=== PATIENT | female | born 2000 | race Hispanic/Latino ===

== ENCOUNTER 2019-12-09 19:40 | Emergency (ER) | payer OTHER, SELFPAY ==
--- OUTSIDE RECORDS SUMMARY | 2019-12-09 19:43 | XMS REPORT | Summary of Care ---
:[address] 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 Brand Hypothyroidism, name necessary. unspecified type terconazole 0.8 % Insert 1 20 g 0 05/16/2019 Discontinued vaginal Applicator into 9 creamIndications: vagina at Vaginal yeast bedtime. infection documented as of this encounter (statuses as of 08/01/2019) Active Problems Problem Noted Date Other specified hypothyroidism 11/06/2018 Morbid obesity with body mass index of 40.0-49.9 10/23/2018 Migraine without aura and without status migrainosus, not intractable 2017 Obesity (BMI 30-39.9) 03/17/2018 Family history of thyroid cancer 05/20/2017 Acquired hypothyroidism 05/17/2017 documented as of this encounter (statuses as of 08/01/2019) Resolved Problems Problem Noted Date Resolved Date (spontaneous vaginal delivery) 11/08/2018 11/30/2018 37 weeks gestation of 11/06/2018 02/28/2019 Positive GBS test 11/06/2018 02/28/2019 Decreased movements in third trimester 11/06/2018 02/28/2019 Excessive growth affecting management of in 11/06/20182018 third trimester 34 weeks gestation of 10/09/2018 02/28/2019 Supervision of normal 08/14/2018 02/28/2019 29 weeks gestation of 08/09/2018 02/28/2019 documented as of this encounter (statuses as of 08/01/2019) Immunizations Name Administration Dates Next Due HPV 04/05/2013, 11/09/2012, 01/21/2012 Influenza Virus Vaccine Quad .5 mL IM 6+ 09/11/2018 MO Influenza Virus Vaccine Quad IM 3+ YRS 11/07/2014 Tdap 09/11/2018 documented as of this encounter Social History Tobacco Use Types Packs/Day Years Used Date Never Smoker Smokeless Tobacco: Never Used Alcohol Use Drinks/Week oz/Week Comments No Sex Assigned at Date Recorded Not on file Job Start Date Occupation Industry Not on file Not on file Not on file Travel History Travel Start Travel End No recent travel history available. 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 This is a recurrent problem. The current episode started in the past 7 days (2 days) . The problem occurs 2 to 4 times per day.The patient is experiencing no pain. She wears cotton underwear. The vaginal discharge was clear, white and malodorous. The vaginal bleeding is none. Nothing aggravates the symptoms. She has tried nothing for the symptoms. No, her partner does not have an STD. She uses an IUD for contraception. Her past medical history is significant for vaginosis. Patient reports sexually active. Histories OB History Para Term AB Living 2 2 2 0 0 2 SAB TAB Ectopic Multiple Live Births 0 0 0 0 2 # Outcome Date GA Lbr Rob/2nd Weight Sex Delivery Anes PTL Lv 2 Term 11/07/18 38w0d 8 lb 15.6 oz (4.07 kg) F NORMAL SPONT EPI GURPREET Complications: Shoulder Dystocia 1 Term 02/11/16 39w0d 7 lb 10 oz (3.459 kg) M NORMAL SPONT None N GURPREET Obstetric Comments Blood transfusion 1 week after delivery due to anemia Past Medical History: Diagnosis Date Anemia 2017 with previous , hasnt had labs since. Hypothyroid 2010 currently taking medications Migraine Transfusion history 2016 1 week after she had son Family History Problem Relation Age of Onset Thyroid Cancer Mother Hypertension Mother Diabetes Maternal Grandmother Hypertension Maternal Grandmother Thyroid Cancer Maternal Grandmother brain tumor No Significant Medical Problems Father Depression Sister No Significant Medical Problems Maternal Aunt No Significant Medical Problems Maternal Uncle No Significant Medical Problems Paternal Aunt No Significant Medical Problems Paternal Uncle Gout Maternal Grandfather Arthritis NoFHx Asthma NoFHx defects NoFHx Breast Cancer NoFHx Colon Cancer NoFHx Uterine Cancer NoFHx Ovarian Cancer NoFHx Cancer NoFHx Genetic NoFHx Heart NoFHx High cholesterol NoFHx Mental retardation NoFHx Neurological NoFHx Osteoporosis NoFHx Psychiatry NoFHx Family Status Relation Name Status Mo Alive MGMo Alive Fa Alive Sis Alive MAunt Alive MUnc Alive PAunt Alive PUnc Alive MGFa Alive PGMo PGFa Alive NoFHx (Not Specified) Past Surgical History: Procedure Laterality Date TOOTH EXTRACTION 2013 Social History Socioeconomic History Marital status: Single Spouse name: Not on file Number of children: Not on file Years of education: Not on file Highest education level: Not on file Occupational History Not on file Social Needs Financial resource strain: Not on file Food insecurity: Worry: Not on file Inability: Not on file Transportation needs: Medical: Not on file Non-medical: Not on file Tobacco Use Smoking status: Never Smoker Smokeless tobacco: Never Used Substance and Sexual Activity Alcohol use: No Drug use: No Sexual activity: Yes Partners: Male control/protection: IUD Comment: last sexual intercourse 02/25/2019 Lifestyle Physical activity: Days per week: Not on file Minutes per session: Not on file Stress: Not on file Relationships Social connections: Talks on phone: Not on file Gets together: Not on file Attends holiness service: Not on file Active member of club or organization: Not on file Attends meetings of clubs or organizations: Not on file Relationship status: Not on file Intimate partner violence: Fear of current or ex partner: Not on file Emotionally abused: Not on file Physically abused: Not on file Forced sexual activity: Not on file Other Topics Concern Not on file Social History Narrative Shinto preference is Uatsdin. Pt lives with boyfriend and 2 kids. Social History Substance and Sexual Activity Sexual Activity Yes Partners: Male control/protection: IUD Comment: last sexual intercourse 02/25/2019 Labs Labs are pending. Radiology No new radiology. Allergies Hayley has No Known Allergies. Medications Hayley has a current medication list which includes the following prescription(s) : levothyroxine. Review of Systems Constitutional: Negative. Gastrointestinal: Negative. Genitourinary: Positive for vaginal discharge. Neurological: Negative. Psychiatric/Behavioral: Negative. BP 105/72 (BP Location: Right arm, Patient Position: Sitting, BP CUFF SIZE: Adult Medium) | Pulse 64 | Temp 36.6 C (97.9 F) (Oral) | Resp 16 | Ht 5 ' 2" (1.575 m) | Wt 207 lb 3 oz (94 kg) | LMP 04/04/2019 (Approximate) | BMI 37.90 kg/m Pregravid BMI: Could not be calculated Physical Exam Vitals reviewed. Constitutional: She is oriented to person, place, and time. She appears well- developed and well-nourished. Her body habitus is obese. Pulmonary/Chest: Normal inspiratory effort. Neuro/Psychiatric: She has a normal mood and affect. She is oriented to person, place, and time. Skin: Skin normal. External genitalia: Normal external genitalia appropriate for age. Vagina:Normal vagina. No abnormal vaginal discharge found. Cervix: Normal cervix. No discharge present. Is Wet Prep Result Normal or Abnormal?: Normal Assessment/Plan 1. Vaginal discharge Exam and wet prep WNL today. Patient reports this is a frequent complaint Do not see an affirm has been tested for confirmation, will send today - [facility] ONLY - VAGINAL PATHOGENS BY [facility] Discussed treatment options. Reviewed patient instructions and provided printed copy. This visit did not involve counseling and coordination that comprised more than 50% of the visit time. documented in this encounter Plan of Treatment Date Type Specialty Care Team Description 03/03/2020 Office Visit [facility] Satellites Leni Barraza FNP [address], [place] [address] Name Type Priority Associated Diagnoses Order Schedule [facility] ONLY - VAGINAL PATHOGENS LAB Routine Vaginal discharge Ordered: 2018 BY DNA PROBE Health Maintenance Due Date Last Done Comments MENINGOCOCCAL B VACCINES (1 of 2008 2 - Risk Bexsero 2-dose series) INFLUENZA VACCINE (#1) 2019 09/11/2018, 11/07/2014 PAP SMEAR 2019 CHLAMYDIA SCREENING 05/17/2020 05/17/2019, 02/28/2019, 03/17/2018 DTaP,Tdap,and Td Vaccines (2 - 09/11/2028 09/11/2018 Td) HPV VACCINES Completed 04/05/2013, 11/09/2012, 01/21/2012 MENINGOCOCCAL VACCINE Aged Out No longer eligible based on patient's age to complete this topic PNEUMOCOCCAL 0-64 YEARS Aged Out No longer eligible based COMBINED SERIES on patient's age to complete this topic documented as of this encounter Results Not on filedocumented in this encounter Visit Diagnoses Diagnosis Vaginal discharge - Primary Leukorrhea, not specified as infective documented in this encounter Insurance Payer Benefit Plan Subscriber ID Effective Phone Address Type / Group [facility] xxxxxxxxx 2019-Prese [phone] Medicaid WOMEN nt [address] [place] [address] (Home) [address] [place] [address] documented as of this encounter Advance Directives Name Relationship Healthcare Agent Communication Relationship Jessica Rodriguez Mother Primary healthcare agent
--- OUTSIDE RECORDS SUMMARY | 2019-12-09 19:43 | XMS REPORT ---
:2000 Author Organization [facility] Address [address] [place] [address] Care Team Providers Name Role Phone MARTINA BRUSH Unavailable Unavailable Problems This patient has no known problems. Allergies, Adverse Reactions, Alerts This patient has no known allergies or adverse reactions. Medications This patient has no known medications. Results Test Description Test Time Test Comments Text Results Atomic Results Result Comments RPR 2017-08-15 09:38:00 Test Item Value Reference Range Comments RPR SCREEN (BEAKER) (test hntq=529) Nonreactive Nonreactive MR, BRAIN, [id number] 17:26:00FINAL REPORT MRI brain with and without contrast Comparison: None Reason for exam: Headache sudden onset, carotid vertebral dissection suspected Discussion: Multiplanar MRimaging of the brain was provided [id number] IV gadolinium administration using T1, T2, FLAIR, T2 star, diffusion weighted sequences, and ADC map imaging. There are no intracranial hematomas, masses,hydrocephalus, shift, or extra-axial collections. There are no areas of abnormal enhancement or abnormal diffusion restriction. Flow-voids are seen in the basilar and internal carotid arteries as well as in the large posterior dural sinuses. The pineal, sella, and craniocervical junction regions are unremarkable. The visualized orbital contents, paranasal sinuses, skullbase and surrounding soft tissues are unremarkable. Impressions: Negative cranial MRI. Signed: Sheree Prince Verified Date/Time: 08/14/2017 17:26:10 Reading Location : [facility] [id number] Neuro Reading Room [id number] 11:00:00 Test Item Value Reference Range Comments THYROID STIMULATING HORMONE (BEAKER) (test 2.80 uIU/mL 0.35-4.94 asao=054) VITAMIN B12 AND [id number] 11:00:00 Test Item Value Reference Range Comments VITAMIN B12 (BEAKER) (test pgqd=715) 371 pg/mL 213-816 FOLATE (BEAKER) (test afyq=880) 14.1 ng/mL >=7.0 HEMOGLOBIN [id number] 08:05:00 Test Item Value Reference Range Comments HEMOGLOBIN A1C (BEAKER) (test ydqh=015) 5.3 % 4.3-6.1 SEDIMENTATION [id number] 06:19:00 Test Item Value Reference Range Comments SEDIMENTATION RATE, ERYTHROCYTE (BEAKER) (test 6 mm/HR 0-20 gvcl=587) LIPID [id number] 05:31:00 Test Item Value Reference Range Comments TRIGLYCERIDES (BEAKER) (test edky=269) 90 mg/dL CHOLESTEROL (BEAKER) (test qnvn=796) 135 mg/dL HDL CHOLESTEROL (BEAKER) (test taii=366) 27 mg/dL LDL CHOLESTEROL CALCULATED (BEAKER) (test 90 mg/dL sjqb=780) Triglyceride Reference Range: Low Risk <150 Borderline 150- 199 High Risk 200-499 Very High Risk >=500Cholesterol Reference Range: Low Risk <200 Borderline 200-239 High Risk > 240HDL Cholesterol Reference Range: Low Risk >=60 High Risk <40LDL Cholesterol Reference Range: Optimal <100 Near Optimal 100-129 Borderline 130-159 High 160-189 Very High >=190 FastingBASIC METABOLIC [id number] 05:31:00 Test Item Value Reference Range Comments SODIUM (BEAKER) (test 141 meq/L 136-145 dmbw=380) POTASSIUM (BEAKER) (test 3.5 meq/L 3.5-5.1 jfis=232) CHLORIDE (BEAKER) (test 111 meq/L 98-107 htwz=571) CO2 (BEAKER) (test 22 meq/L 22-29 omsy=894) BLOOD UREA NITROGEN 11 mg/dL 7-21 (BEAKER) (test ijgz=542) CREATININE (BEAKER) (test 0.66 mg/dL 0.57-1.25 lqqz=278) GLUCOSE RANDOM (BEAKER) 88 mg/dL 70-105 (test gjvn=320) CALCIUM (BEAKER) (test 8.7 mg/dL 8.4-10.2 enby=066) EGFR (BEAKER) (test 115 mL/min/1.73 sq m ESTIMATED GFR IS NOT mnuu=7009) ACCURATE CREATININE CLEARANCE IN PREDICTING GLOMERULAR FILTRATION RATE. ESTIMATED GFR IS NOT APPLICABLE FOR DIALYSIS PATIENTS. FastingC-REACTIVE [id number] 05:31:00 Test Item Value Reference Range Comments C-REACTIVE PROTEIN (BEAKER) (test xtsz=003) 0.67 mg/dL 0.00-0.50 FastingCBC W/PLT COUNT & AUTO [id number] 04:55:00 Test Item Value Reference Range Comments WHITE BLOOD CELL COUNT (BEAKER) (test ckcc=775) 9.4 K/ L 3.5-10.5 RED BLOOD CELL COUNT (BEAKER) (test qxez=944) 4.03 M/ L 3.93-5.22 HEMOGLOBIN (BEAKER) (test qolw=506) 11.8 GM/DL 11.2-15.7 HEMATOCRIT (BEAKER) (test msnv=210) 36.0 % 34.1-44.9 MEAN CORPUSCULAR VOLUME (BEAKER) (test xjzj=128) 89.3 fL 79.4-94.8 MEAN CORPUSCULAR HEMOGLOBIN (BEAKER) (test 29.3 pg 25.6-32.2 ncdo=550) MEAN CORPUSCULAR HEMOGLOBIN CONC (BEAKER) (test 32.8 GM/DL 32.2-35.5 zett=030) RED CELL DISTRIBUTION WIDTH (BEAKER) (test 13.4 % 11.7-14.4 exoh=985) PLATELET COUNT (BEAKER) (test fbqo=359) 295 K/CU MM 150-450 MEAN PLATELET VOLUME (BEAKER) (test vdfm=515) 11.2 fL 9.4-12.3 NUCLEATED RED BLOOD CELLS (BEAKER) (test 0 /100 WBC 0-0 zler=975) NEUTROPHILS RELATIVE PERCENT (BEAKER) (test 56 % caeb=982) LYMPHOCYTES RELATIVE PERCENT (BEAKER) (test 34 % nhiq=082) MONOCYTES RELATIVE PERCENT (BEAKER) (test 9 % eixl=996) EOSINOPHILS RELATIVE PERCENT (BEAKER) (test 1 % uaww=881) BASOPHILS RELATIVE PERCENT (BEAKER) (test 0 % kler=845) NEUTROPHILS ABSOLUTE COUNT (BEAKER) (test 5.24 K/ L 1.56-6.13 ioss=346) LYMPHOCYTES ABSOLUTE COUNT (BEAKER) (test 3.16 K/ L 1.18-3.74 nojf=919) MONOCYTES ABSOLUTE COUNT (BEAKER) (test 0.82 K/ L 0.24-0.36 cksd=809) EOSINOPHILS ABSOLUTE COUNT (BEAKER) (test 0.07 K/ L 0.04-0.36 ihyp=240) BASOPHILS ABSOLUTE COUNT (BEAKER) (test 0.04 K/ L 0.01-0.08 axuz=553) IMMATURE GRANULOCYTES-RELATIVE PERCENT (BEAKER) 1 % 0-1 (test cukn=4688)
--- OUTSIDE RECORDS SUMMARY | 2019-12-09 19:43 | XMS REPORT | Summary of Care ---
:2000 Author Organization [facility] Address [address] [place] [address] Care Team Providers Name Role Phone Leni Barraza Primary Care Provider Reason for Visit Reason Comments Lab Results Encounter Details Date Type Department Care Team Description 08/02/2019 Telephone [facility]- Leni De Oliveira [facility] Lab Results [address] [place] [address] [facility] A [phone] [place] [address] Allergies No Known Allergiesdocumented as of this encounter (statuses as of 08/02/2019) Medications Medication Sig Dispensed Refills Start Date End Date Status levothyroxine Take 1 tablet 90 tablet 1 01/17/2019 Active (SYNTHROID) 75 mcg by mouth every tabletIndications: morning. Brand Hypothyroidism, name necessary. unspecified type metroNIDAZOLE (FLAGYL) Take 1 tablet 14 tablet 0 08/02/2019 08/09/2019 Active 500 mg by mouth 2 tabletIndications: (two) times Bacterial vaginosis daily for 7 days. documented as of this encounter (statuses as of 08/02/2019) Active Problems Problem Noted Date Other specified hypothyroidism 11/06/2018 Morbid obesity with body mass index of 40.0-49.9 10/23/2018 Migraine without aura and without status migrainosus, not intractable 2017 Obesity (BMI 30-39.9) 03/17/2018 Family history of thyroid cancer 05/20/2017 Acquired hypothyroidism 05/17/2017 documented as of this encounter (statuses as of 08/02/2019) Resolved Problems Problem Noted Date Resolved Date [...] as of this encounter (statuses as of 08/02/2019) Immunizations Name Administration Dates Next Due HPV [...] of this encounter Last Filed Vital Signs Not on filedocumented in this encounter Plan of Treatment Date Type Specialty Care Team Description 03/03/2020 Office Visit [facility]ell[facility] Leni Barraza, NEUROLOGICAL PHYSIOTHERAPIST [address] [facility] [place] [address] [phone] Health Maintenance Due Date Last Done Comments [...] filedocumented in this encounter Visit Diagnoses Diagnosis Bacterial vaginosis - Primary Vaginitis and vulvovaginitis, unspecified documented in this encounter Insurance Payer Benefit Plan Subscriber ID Effective Phone Address Type / Group [facility] xxxxxxxxx 2019-Prese [phone] Medicaid WOMEN nt [id number] [place] [address] documented as of this encounter Advance Directives Name Relationship Healthcare Agent Communication Relationship Jessica Kamranmichael Mother Primary healthcare agent
--- OUTSIDE RECORDS SUMMARY | 2019-12-09 19:43 | XMS REPORT | Summary of Care ---
:2000 Author Organization 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 Pt lives with boyfriend and 2 kids. [...] OB Satellites Leni Barraza FNP [address], [place] [address] Name Type Priority Associated Diagnoses Order Schedule [...] ID Effective Phone Address Type / Group [facility] xxxxxxxxx 2019-Prese [phone] Medicaid WOMEN nt [address] [place] [address] (Home) [address] [place] [address] documented as of this encounter Advance Directives Name Relationship Healthcare Agent Communication Relationship Jessica Rodriguez Mother Primary healthcare agent
[2019-12-09] MEDS ORDERED: BUPIVACAINE 0.5% PF 10 ML VIAL ONE (20:18)
[2019-12-09] MEDS ORDERED: TETANUS & DIPHTHERIA TOX,ADULT 0.5 ML VIAL ONE (20:47)
--- NOTE | 2019-12-09 21:25 | EDPHYS ---
Physician Documentation [facility] Name: Hayley Gautam Age: 19 yrs Sex: Female : 2000 Arrival Date: 12/09/2019 Time: 19:42 Bed 28 Private MD: JOSE MIGUEL Physician Phil Elise HPI: 12/09 20:15 This 19 yrs old Female presents to ER via Ambulatory with complaints of jmm Laceration To Finger. 20:15 The patient or guardian reports injury, pain. Onset: The symptoms/episode jmm began/occurred acutely, just prior to arrival. Modifying factors: The symptoms are alleviated by nothing, the symptoms are aggravated by nothing. Associated signs and symptoms:. This is a 19 year old female with a history of hypothyroidism that presents to the ED with complaints of laceration to her left index finger. Accidently cut while cutting onions. . 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 - Social history:: Smoking status: Patient denies any tobacco usage or history of. - Ebola Screening: : No symptoms or risks identified at this time. ROS: 20:15 Constitutional: Negative for fever, chills, and weight loss, Cardiovascular: Negative jmm for chest pain, palpitations, and edema, Respiratory: Negative for shortness of breath, cough, wheezing, and pleuritic chest pain. 20:15 Skin: Positive for laceration(s). 20:15 All other systems are negative. Exam: 20:15 Constitutional: This is a well developed, well nourished patient who is awake, alert, jmm and in no acute distress. Head/Face: atraumatic. Eyes: EOMI, no conjunctival erythema appreciated ENT: Moist Mucus Membranes Neck: Trachea midline, Supple Chest/axilla: Normal chest wall appearance and motion. Cardiovascular: Regular rate and rhythm. No edema appreciated Respiratory: Normal respirations, no respiratory distress appreciated Abdomen/GI: Non distended, soft Back: Normal ROM 20:15 Skin: laceration noted to the radial side of the left index finger. 20:15 Neuro: Motor: is normal. 20:15 Psych: Behavior/mood is pleasant, cooperative. Vital Signs: 19:50 BP 127 / 85; Pulse 75; Resp 14 S; Temp 98.4(O); Pulse Ox 98% on R/A; Weight 88.45 kg bb (R); Height 5 ft. 2 in. (157.48 cm) (R); Pain 7/10; 19:50 Body Mass Index 35.67 (88.45 kg, 157.48 cm) bb Laceration: 21:23 Wound Repair of 3cm ( 1.2in ) subcutaneous laceration to palmar aspect of middle jmm phalanx of left index finger. Distal neuro/vascular/tendon intact. Anesthesia: Digital block administered with 3 mls of 0.5% marcaine. Wound prep: Simple cleansing with betadine by me. Skin closed with 4 5-0 Prolene using simple sutures and sterile technique. Patient tolerated well. MDM: 20:11 Patient medically screened. [facility] 21:23 Data reviewed: vital signs, nurses notes. Counseling: I had a detailed discussion with manuel the patient and/or guardian regarding: the historical points, exam findings, and any diagnostic results supporting the discharge/admit diagnosis, the need for outpatient follow up, to return to the emergency department if symptoms worsen or persist or if there are any questions or concerns that arise at home. ED course: Patient given wound infection return precautions. . Administered Medications: 20:48 Drug: Marcaine (0.5 %) 10 ml {Note: Administered by BIANCA Diaz.} Volume: 10 ml; aj1 Route: Infiltration; 21:43 Follow up: Response: No adverse reaction aj1 20:59 Drug: Tetanus-Diphtheria Toxoid Adult 0.5 ml {Paper Handler: [place] Exp: aj1 12/06/2021. Lot #: [id number]. } Route: IM; Site: right deltoid; 21:43 Follow up: Response: No adverse reaction aj1 Disposition: 12/10 07:55 Co-signature as Attending Physician, Phil Elise MD I agree with the assessment and leidy plan of care. Disposition: 12/09/19 21:24 Discharged to Home. Impression: Laceration of the left index finger. - Condition is Stable. - Discharge Instructions: Laceration Care, Adult. - Medication Reconciliation Form, Thank You Letter, Antibiotic Education, Prescription Opioid Use form. - Follow up: Private Physician; When: 1 week; Reason: Recheck today's complaints, Continuance of care, Staple/Suture removal, Re-evaluation by your physician. Signatures: Petra Malcolm RN RN aj1 Phil Elise MD MD cha Mickail, Joel, PA PA jmm Ballard, Brenda, RN RN bb Corrections: (The following items were deleted from the chart) 12/09 21:46 21:24 12/09/2019 21:24 Discharged to Home. Impression: Laceration of the left index aj1 finger. Condition is Stable. Forms are Medication Reconciliation Form, Thank You Letter, Antibiotic Education, Prescription Opioid Use. Follow up: Private Physician; When: 1 week; Reason: Recheck today's complaints, Continuance of care, Staple/Suture removal, Re-evaluation by your physician. manuel
--- NOTE | 2019-12-09 21:25 | ER ---
Nurse's Notes [facility] Name: Hayley Gautam Age: 19 yrs Sex: Female : 2000 Arrival Date: 12/09/2019 Time: 19:42 Bed 28 Private MD: Diagnosis: Laceration of the left index finger Presentation: 12/09 19:49 Presenting complaint: Patient states: she cut her left first finger approx 20 minutes bb ago while cutting food for dinner. Transition of care: patient was not received from another setting of care. Onset of symptoms was December 09, 2019. Risk Assessment: Do you want to hurt yourself or someone else? Patient reports no desire to harm self or others. Initial Sepsis Screen: Does the patient meet any 2 criteria? No. Patient's initial sepsis screen is negative. Does the patient have a suspected source of infection? No. Patient's initial sepsis screen is negative. Care prior to arrival: None. 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 - Social history:: Smoking status: Patient denies any tobacco usage or history of. - Ebola Screening: : No symptoms or risks identified at this time. Screenin:51 Abuse screen: Denies threats or abuse. Nutritional screening: No deficits noted. bb Tuberculosis screening: No symptoms or risk factors identified. Fall Risk None identified. Assessment: 19:51 General: Appears in no apparent distress. Behavior is calm, cooperative. Pain: bb Complains of pain in left hand. Neuro: Level of Consciousness is awake, alert, obeys commands, Oriented to person, place, time, situation. Cardiovascular: No deficits noted. Respiratory: Respiratory effort is even, unlabored, Respiratory pattern is regular. GI: No signs and/or symptoms were reported involving the gastrointestinal system. Derm: Skin is pink, warm \T\ dry. Wound noted left hand. Musculoskeletal: Circulation, motion, and sensation intact. Injury Description: Laceration sustained to palmar aspect of middle phalanx of left index finger. 21:02 Reassessment: Patient appears in no apparent distress at this time. No changes from aj1 previously documented assessment. Patient and/or family updated on plan of care and expected duration. Pain level reassessed. Patient is alert, oriented x 3, equal unlabored respirations, skin warm/dry/pink. Vital Signs: 19:50 BP 127 / 85; Pulse 75; Resp 14 S; Temp 98.4(O); Pulse Ox 98% on R/A; Weight 88.45 kg bb (R); Height 5 ft. 2 in. (157.48 cm) (R); Pain 7/10; 19:50 Body Mass Index 35.67 (88.45 kg, 157.48 cm) bb ED Course: 19:42 Patient arrived in ED. cl3 19:50 Triage completed. bb 19:50 Arm band placed on Patient placed in an exam room, on a stretcher, on pulse oximetry. bb Family accompanied patient. 19:51 Patient has correct armband on for positive identification. Bed in low position. Call bb light in reach. Side rails up X 1. Adult w/ patient. 19:57 Feliz Velazquez PA is [facility] 19:57 Phil Elise MD is Attending Physician. [facility] 19:58 Petra Malcolm RN is Primary Nurse. [facility] 19:58 No provider procedures requiring assistance completed. aj1 21:43 Patient did not have IV access during this emergency room visit. aj1 Administered Medications: 20:48 Drug: Marcaine (0.5 %) 10 ml {Note: Administered by BIANCA Diaz.} Volume: 10 ml; aj1 Route: Infiltration; 21:43 Follow up: Response: No adverse reaction aj1 20:59 Drug: Tetanus-Diphtheria Toxoid Adult 0.5 ml {Power Hair Clipper: [place]. Exp: aj1 12/06/2021. Lot #: [id number]. } Route: IM; Site: right deltoid; 21:43 Follow up: Response: No adverse reaction aj1 Outcome: 21:24 Discharge ordered by . [facility] 21:46 Patient left the ED. aj1 Signatures: Petra Malcolm, AUDRA RN aj1 Feliz Velazquez PA PA jmm Susan Lawrence, RN RN bb Walker Rodriguez cl3
[2019-12-09 22:51] VITALS: BP 127/85; TEMP 98.4; O2SAT 98
== END 2019-12-09 21:46 | disposition home or self-care (01) ==
LOC: ER 19:40
PROC: 0JQK0ZZ Repair Left Hand Subcutaneous Tissue and Fascia, Open Approach (ICD-10-PCS; principal; 2019-12-09)
DX: S61.211A Laceration without foreign body of left index finger without damage to nail, initial encounter (principal); W26.0XXA Contact with knife, initial encounter; Y93.G3 Activity, cooking and baking; Y92.010 Kitchen of single-family (private) house as the place of occurrence of the external cause; Z23 Encounter for immunization
CPT/HCPCS: 90471; 90714; 99283